=== PATIENT | female | born 1935 | race Caucasian/White ===

== ENCOUNTER → 2019-08-06 | Outpatient (CLI) | payer MEDICARE, BC ==
--- NOTE | 2019-08-06 13:50 | US ---
EXAMINATION TYPE: US pelvic complete DATE OF EXAM: 08/06/2019 COMPARISON: NONE CLINICAL HISTORY: 83-year-old female R93.899 abnormal findings on diagnostic imaging. Intermittent ri ght pelvic/hip pain x 1 year, 2, para 2 TECHNIQUE: Transabdominal sonographic images of the pelvis were acquired. Transvaginal sonographic i mages were medically necessary to better assess the following anatomy: endometrium and ovaries Date of LMP: 30 years ago FINDINGS: EXAM MEASUREMENTS: Uterus: 5.5 x 2.2 x 3.5 cm Endometrial Stripe: 0.2 cm Right Ovary: not seen Left Ovary: 2.7 x 1.1 x 1.5 cm 1. Uterus: anteverted 2. Endometrium: Fluid measuring 4 mm distending the uterine cavity. Suggestion of some debris or oth er hypoechoic material within the fluid as well more towards the lower uterine segment. 3. Right Ovary: not seen due to overlying bowel 4. Left Ovary: only seen transabdominally, 1.1cm hypoechoic area 5. Bilateral Adnexa: wnl 6. Posterior cul-de-sac: wnl IMPRESSION: 1. Fluid distending the uterine cavity up to 4 mm thick. There is also some hypoechoic material versu s debris toward the uterine cavity of the lower uterine segment. Recommend SCALE INSTALLER evaluation to exclu de cervical stenosis or a mucosal lesion along the lower uterine segment endometrium. 2. Nonspecific 1.1 cm hypoechoic lesion of the left ovary. A cyst is possible. 2-3 month follow-up re commended to reassess.
--- NOTE | 2019-08-06 14:46 | CT ---
EXAMINATION TYPE: CT abdomen pelvis wo con DATE OF EXAM: 08/06/2019 COMPARISON: HISTORY: left flank pain, low back pain and hesitancy of micturition CT DLP: 492 mGycm Automated exposure control for dose reduction was used. TECHNIQUE: Helical acquisition of images from the lung bases through the pelvis. FINDINGS: Lack of intravenous contrast could compromise sensitivity. LUNG BASES: No significant abnormality is appreciated. Posterior diaphragmatic hernias are present. T here is hiatal hernia present. AORTA: Atheromatous changes are appreciated. LIVER/GB: No significant abnormality is appreciated. PANCREAS: No significant abnormality is seen. SPLEEN: No significant abnormality is seen. ADRENALS: No significant abnormality is seen. KIDNEYS: There may be parapelvic cysts, extrarenal pelves bilaterally, punctate nonobstructive calcul us present at the lower pole of the right kidney, no evident ureteral calculus REPRODUCTIVE ORGANS: No significant abnormality is seen. URINARY BLADDER: Suspect a cystocele is present. BOWEL: No significant abnormality is seen. FREE AIR: No Free Air is visible. ASCITES: None visible. PELVIC ADENOPATHY: None visualized. RETROPERITONEAL ADENOPATHY: No Retroperitoneal Adenopathy visible. OSSEOUS STRUCTURES: Streak artifact due to patient's bilateral hip prostheses may limit evaluation w ithin the pelvis. There is a spinal curvature. Degenerative disc changes are present in the visualize d spine. There are associated facet arthropathy changes. IMPRESSION: URINARY BLADDER CYSTOCELE, NONCONTRAST EXAM. NONOBSTRUCTIVE RIGHT NEPHROLITHIASIS. ADDITIONAL LIMITAT IONS AND FINDINGS ABOVE.
== END | disposition home or self-care (01) ==
LOC: RADUSMAIN 12:37
PROVIDERS: ATTEND Family Medicine
DX: N83.8 Other noninflammatory disorders of ovary, fallopian tube and broad ligament (principal); N20.0 Calculus of kidney; N81.10 Cystocele, unspecified; K44.9 Diaphragmatic hernia without obstruction or gangrene; R39.11 Hesitancy of micturition
CPT/HCPCS: 74176; 76830; 76856

== ENCOUNTER 2020-09-28 12:17 | Emergency (ER) | payer MEDICARE, BC ==
[2020-09-28 13:23] VITALS: RESP 18
--- NOTE | 2020-09-28 14:07 | ED ---
General Adult HPI - General Chief complaint: Skin/Abscess/Foreign Body Stated complaint: rash Source: patient Mode of arrival: ambulatory Limitations: no limitations - History of Present Illness Initial comments: 84-year-old female presents emergency Department with a chief complaint of a rash. She states it has been relatively the same ever since it began approximately one week ago. Patient reports it is itchy but not painful. States it is localized to the bilateral lower extremities. States there is no discharge, from it. Denies any associated insects coming from region. Denies any fevers or chills. States she hasn't working out in the [email or web address] quite a bit and has poison IV and the surrounding area. She has been applying hydrogen peroxide with some improvement in the itching. Has not taken any oral medication. - Related Data Home Medications Medication Instructions Recorded Confirmed Calcium Carbonate [Calcium] 1 tab PO DAILY 03/13/15 03/25/15 Multivitamins, Thera [Multivitamin 1 tab PO DAILY 03/13/15 03/25/15 (formulary)] Previous Rx's Medication Instructions Recorded Docusate [Colace] 100 mg PO BID #60 capsule 03/26/15 Aspirin 325 mg PO BID #60 tab 03/28/15 Hydrocodone/Acetaminophen [[place] 1 - 2 each PO Q6HR PRN #90 tab 03/28/15 5-325] predniSONE [Deltasone] 20 mg PO DAILY #5 tab 09/28/20 Allergies Allergy/AdvReac Type Severity Reaction Status Date / Time No Known Allergies Allergy Verified 03/13/15 16:21 Review of Systems ROS Statement: Those systems with pertinent positive or pertinent negative responses have been documented in the HPI. ROS Other: All systems not noted in ROS Statement are negative. Past Medical History Past Medical History: Osteoarthritis (OA) Additional Past Medical History / Comment(s): HX KIDNEY STONE. History of Any Multi-Drug Resistant Organisms: None Reported Past Surgical History: Orthopedic Surgery Additional Past Surgical History / Comment(s): RT MASTOID SURG. RT SHOULDER SURG. Past Anesthesia/Blood Transfusion Reactions: No Reported Reaction Past Psychological History: No Psychological Hx Reported Smoking Status: Never smoker Past Alcohol Use History: Rare Past Drug Use History: None Reported - Past Family History Mother Family Medical History: No Reported History General Exam Limitations: no limitations General appearance: alert, in no apparent distress Head exam: Present: atraumatic, normocephalic, normal inspection Eye exam: Present: normal appearance Pupils: Present: normal accommodation ENT exam: Present: normal exam, normal oropharynx, mucous membranes moist Neck exam: Present: normal inspection, full ROM. Absent: tenderness, lymphadenopathy Respiratory exam: Present: normal lung sounds bilaterally. Absent: respiratory distress Cardiovascular Exam: Present: regular rate, normal rhythm, normal heart sounds. Absent: systolic murmur Extremities exam: Present: full ROM, normal capillary refill. Absent: normal inspection (Maculopapular rash to the bilateral lower extremities. No signs of cellulitis.) Back exam: Present: normal inspection, full ROM. Absent: tenderness Neurological exam: Present: alert, oriented X3 Psychiatric exam: Present: normal affect, normal mood Skin exam: Present: warm, dry, intact, normal color, rash Course Vital Signs 09/28/20 13:14 Temperature 97.8 F Pulse Rate 67 Respiratory 18 Rate Blood Pressure 181/94 O2 Sat by Pulse 98 Oximetry Medical Decision Making - Medical Decision Making 84-year-old female presents to emergency Department with a chief complaint of a rash. On physical examination, maculopapular rash in bilateral lower extremities. Itching is not worse at night. Does not appear to be contact dermatitis. It has rather equal distributional along bilateral lower extremities. I suspect more of a viral exanthem at this time. I will treat the patient with a short course of steroids and advised to take Benadryl for the itching. Also advised cool baths. Advised to follow with PCP. Case discussed with Dr. Mcfadden. Disposition Clinical Impression: Maculopapular rash Disposition: HOME SELF-CARE Condition: Stable Instructions (If sedation given, give patient instructions): Viral Exanthem (ED) Additional Instructions: Take prescribed medication as directed. Take Benadryl for itching. Follow with primary care physician. Return to emergency department if symptoms worsen. Prescriptions: predniSONE [Deltasone] 20 mg PO DAILY #5 tab Is patient prescribed a controlled substance at d/c from ED?: No Referrals: Nate Winston III, MD [Primary Care Provider] - 1-2 days Time of Disposition: 14:06
[2020-09-28 14:30] VITALS: BP 159/78; PULSE 82; TEMP 97.9
== END 2020-09-28 14:30 | disposition home or self-care (01) ==
LOC: EC 12:17
DX: R21 Rash and other nonspecific skin eruption (principal); M19.90 Unspecified osteoarthritis, unspecified site; Z79.82 Long term (current) use of aspirin; Z87.442 Personal history of urinary calculi
CPT/HCPCS: 99282

== ENCOUNTER 2021-05-25 15:07 | Inpatient (IN) | payer MEDICARE, BC ==
[2021-05-25 15:42] LABS: Basophils % (A) 0 %; Eosinophils # (A) 0.1 k/uL (0-0.7); Eosinophils % (A) 1 %; HCT 48.9 % (34.0-46.0); HGB 15.7 gm/dL (11.4-16.0); Lymphocytes # (A) 0.8 k/uL (1.0-4.8); Lymphocytes % (A) 4 %; MCH 31.4 pg (25.0-35.0); MCHC 32.2 g/dL (31.0-37.0); MCV 97.5 fL (80.0-100.0); Mean Platelet Volume 7.5; Monocytes # (A) 0.4 k/uL (0-1.0); Monocytes % (A) 2 %; Neutrophils # (A) 16.1 k/uL (1.3-7.7); Neutrophils % (A) 92 %; Platelet Count 234 k/uL (150-450); RBC 5.01 m/uL (3.80-5.40); RDW 12.7 % (11.5-15.5); WBC 17.4 k/uL (3.8-10.6)
[2021-05-25 15:56] LABS: Albumin 4.5 g/dL (3.5-5.0); Calcium 9.4 mg/dL (8.4-10.2); Potassium 4.1 mmol/L (3.5-5.1); Total Bilirubin 1.1 mg/dL (0.2-1.3); Total Protein 7.7 g/dL (6.3-8.2)
[2021-05-25] MEDS ORDERED: SODIUM CHLORIDE 0.9% 500 ML 500 ML IV STA (18:35)
--- NOTE | 2021-05-25 18:41 | ED ---
General Adult HPI - General Chief complaint: Abdominal Pain Stated complaint: Abd pain/back pain Time Seen by Provider: 05/25/21 18:27 Source: patient, RN notes reviewed, old records reviewed Mode of arrival: ambulatory Limitations: no limitations - History of Present Illness Initial comments: Well-appearing pleasant 85-year-old female presents with complaints of mid abdominal pain for one day. Patient states that she also has nausea and did vomit one time, did have one soft stool today but denies diarrhea. She denies fevers. Does complain of decreased appetite since yesterday. No chest pain or difficulty breathing. She states that she has not had any previous abdominal surgeries. She is a nonsmoker, no alcohol use. -: days(s) (1) Location: abdomen Radiation: non-radiation Severity scale (1-10): 7 Quality: aching Consistency: intermittent Improves with: none Worsens with: other (vomiting) Associated Symptoms: loss of appetite, nausea/vomiting Treatments Prior to Arrival: none - Related Data Home Medications Medication Instructions Recorded Confirmed Naproxen Sodium [Aleve] 220 mg PO BID PRN 05/25/21 05/25/21 Allergies Allergy/AdvReac Type Severity Reaction Status Date / Time No Known Allergies Allergy Verified 05/25/21 21:05 Review of Systems ROS Statement: Those systems with pertinent positive or pertinent negative responses have been documented in the HPI. ROS Other: All systems not noted in ROS Statement are negative. Past Medical History Past Medical History: Osteoarthritis (OA) Additional Past Medical History / Comment(s): HX KIDNEY STONE. History of Any Multi-Drug Resistant Organisms: None Reported Past Surgical History: Orthopedic Surgery Additional Past Surgical History / Comment(s): RT MASTOID SURG. RT SHOULDER SURG. Past Anesthesia/Blood Transfusion Reactions: No Reported Reaction Past Psychological History: No Psychological Hx Reported Smoking Status: Never smoker Past Alcohol Use History: Rare Past Drug Use History: None Reported - Past Family History Mother Family Medical History: No Reported History General Exam Limitations: no limitations General appearance: alert, in no apparent distress Head exam: Present: atraumatic Eye exam: Present: normal appearance. Absent: scleral icterus, conjunctival injection ENT exam: Present: normal exam, normal oropharynx, mucous membranes moist Neck exam: Absent: tenderness, meningismus Respiratory exam: Present: normal lung sounds bilaterally. Absent: respiratory distress, accessory muscle use Cardiovascular Exam: Present: tachycardia GI/Abdominal exam: Present: soft, tenderness (Mid periumbilical), normal bowel sounds. Absent: distended, guarding, rebound, rigid Extremities exam: Present: normal capillary refill. Absent: pedal edema Back exam: Present: normal inspection. Absent: tenderness, CVA tenderness (R), CVA tenderness (L), rash noted Neurological exam: Present: alert, oriented X3 Psychiatric exam: Present: normal affect, normal mood Skin exam: Present: warm, dry, other. Absent: normal color, rash, cyanosis, diaphoretic, pallor Course Vital Signs 05/25/21 05/25/21 15:23 21:26 Temperature 98.6 F Pulse Rate 113 H 86 Respiratory 20 16 Rate Blood Pressure 160/95 139/74 O2 Sat by Pulse 98 95 Oximetry - Reevaluation(s) Reevaluation #1: 05/25/21 18:41 Patient was offered pain medication and declined at this time. She was advised if she needs anything for pain or nausea returns to advise us. Time: 18:41 EKG Findings - EKG Results: EKG: sinus rhythm (Ventricular rate 86, IL interval .180, QRS 0.84 QTc .411) Medical Decision Making - Medical Decision Making 85-year-old female presents with 1 day of mid abdominal pain with nausea and one episode of vomiting. Patient states pain was 7 on a 10 initially refusing pain medication. She eventually did take a small dose of morphine with pain relief. CT shows ductal dilatation, common bile duct and main pancreatic duct. Papillary lesion is not entirely excluded. There is evidence of a small hiatal hernia. Diverticulosis with no evidence of diverticulitis. Patient has WBC count of 17 with a left shift. Amylase 1756, lipase 10,746. She was started on Zosyn will be admitted with consult to GI for possible ERCP. Vital signs are stable. She has been afebrile. Patient is agreeable to this plan of care. Case was discussed with Dr. Bailey. - Lab Data Result diagrams: 05/25/21 15:31 05/25/21 19:03 Lab Results 05/25/21 05/25/21 05/25/21 Range/Units 15:31 15:31 18:36 WBC 17.4 H (3.8-10.6) k/uL RBC 5.01 (3.80-5.40) m/uL Hgb 15.7 (11.4-16.0) gm/dL Hct 48.9 H (34.0-46.0) % MCV 97.5 (80.0-100.0) fL MCH 31.4 (25.0-35.0) pg MCHC 32.2 (31.0-37.0) g/dL RDW 12.7 (11.5-15.5) % Plt Count 234 (150-450) k/uL MPV 7.5 Neutrophils % 92 % Lymphocytes % 4 % Monocytes % 2 % Eosinophils % 1 % Basophils % 0 % Neutrophils # 16.1 H (1.3-7.7) k/uL Lymphocytes # 0.8 L (1.0-4.8) k/uL Monocytes # 0.4 (0-1.0) k/uL Eosinophils # 0.1 (0-0.7) k/uL Basophils # 0.0 (0-0.2) k/uL PT (9.0-12.0) sec INR (<1.2) APTT (22.0-30.0) sec Sodium 137 (137-145) mmol/L Potassium 4.1 (3.5-5.1) mmol/L Chloride 103 (98-107) mmol/L Carbon Dioxide 26 (22-30) mmol/L Anion Gap 8 mmol/L BUN 33 H (7-17) mg/dL Creatinine 0.80 (0.52-1.04) mg/dL Est GFR (CKD-EPI)AfAm 79 (>60 ml/min/1.73 sqM) Est GFR (CKD-EPI)NonAf 69 (>60 ml/min/1.73 sqM) Glucose 138 H (74-99) mg/dL Plasma Lactic Acid Freddy (0.7-2.0) mmol/L Calcium 9.4 (8.4-10.2) mg/dL Total Bilirubin 1.1 (0.2-1.3) mg/dL AST 43 H (14-36) U/L ALT 31 (4-34) U/L Alkaline Phosphatase 84 (38-126) U/L Troponin I (0.000-0.034) ng/mL Total Protein 7.7 (6.3-8.2) g/dL Albumin 4.5 (3.5-5.0) g/dL Amylase (30-110) U/L Lipase (23-300) U/L Urine Color Urine Appearance (Clear) Urine pH (5.0-8.0) Ur Specific Morgan (1.001-1.035) Urine Protein (Negative) Urine Glucose (UA) (Negative) Urine Ketones (Negative) Urine Blood (Negative) Urine Nitrite (Negative) Urine Bilirubin (Negative) Urine Urobilinogen (<2.0) mg/dL Ur Leukocyte Esterase (Negative) Influenza Type A (PCR) Not Detected (Not Detectd) Influenza Type B (PCR) Not Detected (Not Detectd) RSV (PCR) Not Detected (Not Detectd) SARS-CoV-2 (PCR) Not Detected (Not Detectd) 05/25/21 05/25/21 05/25/21 Range/Units 19:03 19:03 19:03 WBC (3.8-10.6) k/uL RBC (3.80-5.40) m/uL Hgb (11.4-16.0) gm/dL Hct (34.0-46.0) % MCV (80.0-100.0) fL MCH (25.0-35.0) pg MCHC (31.0-37.0) g/dL RDW (11.5-15.5) % Plt Count (150-450) k/uL MPV Neutrophils % % Lymphocytes % % Monocytes % % Eosinophils % % Basophils % % Neutrophils # (1.3-7.7) k/uL Lymphocytes # (1.0-4.8) k/uL Monocytes # (0-1.0) k/uL Eosinophils # (0-0.7) k/uL Basophils # (0-0.2) k/uL PT 10.5 (9.0-12.0) sec INR 1.0 (<1.2) APTT 23.4 (22.0-30.0) sec Sodium 137 (137-145) mmol/L Potassium 3.9 (3.5-5.1) mmol/L Chloride 103 (98-107) mmol/L Carbon Dioxide 23 (22-30) mmol/L Anion Gap 11 mmol/L BUN 30 H (7-17) mg/dL Creatinine 0.78 (0.52-1.04) mg/dL Est GFR (CKD-EPI)AfAm 82 (>60 ml/min/1.73 sqM) Est GFR (CKD-EPI)NonAf 71 (>60 ml/min/1.73 sqM) Glucose 118 H (74-99) mg/dL Plasma Lactic Acid Freddy 1.5 (0.7-2.0) mmol/L Calcium 9.3 (8.4-10.2) mg/dL Total Bilirubin 1.1 (0.2-1.3) mg/dL AST 38 H (14-36) U/L ALT 28 (4-34) U/L Alkaline Phosphatase 81 (38-126) U/L Troponin I (0.000-0.034) ng/mL Total Protein 7.4 (6.3-8.2) g/dL Albumin 4.2 (3.5-5.0) g/dL Amylase 1756 H* (30-110) U/L Lipase 84967 H (23-300) U/L Urine Color Urine Appearance (Clear) Urine pH (5.0-8.0) Ur Specific Morgan (1.001-1.035) Urine Protein (Negative) Urine Glucose (UA) (Negative) Urine Ketones (Negative) Urine Blood (Negative) Urine Nitrite (Negative) Urine Bilirubin (Negative) Urine Urobilinogen (<2.0) mg/dL Ur Leukocyte Esterase (Negative) Influenza Type A (PCR) (Not Detectd) Influenza Type B (PCR) (Not Detectd) RSV (PCR) (Not Detectd) SARS-CoV-2 (PCR) (Not Detectd) 05/25/21 05/25/21 Range/Units 19:03 19:40 WBC (3.8-10.6) k/uL RBC (3.80-5.40) m/uL Hgb (11.4-16.0) gm/dL Hct (34.0-46.0) % MCV (80.0-100.0) fL MCH (25.0-35.0) pg MCHC (31.0-37.0) g/dL RDW (11.5-15.5) % Plt Count (150-450) k/uL MPV Neutrophils % % Lymphocytes % % Monocytes % % Eosinophils % % Basophils % % Neutrophils # (1.3-7.7) k/uL Lymphocytes # (1.0-4.8) k/uL Monocytes # (0-1.0) k/uL Eosinophils # (0-0.7) k/uL Basophils # (0-0.2) k/uL PT (9.0-12.0) sec INR (<1.2) APTT (22.0-30.0) sec Sodium (137-145) mmol/L Potassium (3.5-5.1) mmol/L Chloride (98-107) mmol/L Carbon Dioxide (22-30) mmol/L Anion Gap mmol/L BUN (7-17) mg/dL Creatinine (0.52-1.04) mg/dL Est GFR (CKD-EPI)AfAm (>60 ml/min/1.73 sqM) Est GFR (CKD-EPI)NonAf (>60 ml/min/1.73 sqM) Glucose (74-99) mg/dL Plasma Lactic Acid Freddy (0.7-2.0) mmol/L Calcium (8.4-10.2) mg/dL Total Bilirubin (0.2-1.3) mg/dL AST (14-36) U/L ALT (4-34) U/L Alkaline Phosphatase (38-126) U/L Troponin I <0.012 (0.000-0.034) ng/mL Total Protein (6.3-8.2) g/dL Albumin (3.5-5.0) g/dL Amylase (30-110) U/L Lipase (23-300) U/L Urine Color Yellow Urine Appearance Clear (Clear) Urine pH 6.5 (5.0-8.0) Ur Specific Morgan 1.023 (1.001-1.035) Urine Protein Negative (Negative) Urine Glucose (UA) Negative (Negative) Urine Ketones Negative (Negative) Urine Blood Negative (Negative) Urine Nitrite Negative (Negative) Urine Bilirubin Negative (Negative) Urine Urobilinogen <2.0 (<2.0) mg/dL Ur Leukocyte Esterase Negative (Negative) Influenza Type A (PCR) (Not Detectd) Influenza Type B (PCR) (Not Detectd) RSV (PCR) (Not Detectd) SARS-CoV-2 (PCR) (Not Detectd) Disposition Clinical Impression: Pancreatitis Disposition: ADMITTED IP TO THIS HOSP Decision Date: 05/25/21 Decision Time: 21:09
[2021-05-25 19:36] LABS: Albumin 4.2 g/dL (3.5-5.0); Calcium 9.3 mg/dL (8.4-10.2); Potassium 3.9 mmol/L (3.5-5.1); Total Bilirubin 1.1 mg/dL (0.2-1.3); Total Protein 7.4 g/dL (6.3-8.2)
[2021-05-25 19:40] LABS: Partial Thromboplastin Time 23.4 sec (22.0-30.0); Prothrombin Time 10.5 sec (9.0-12.0)
[2021-05-25 20:04] LABS: Appearance,Urine Clear (Clear); Bilirubin,Urine Negative (Negative); Blood,Urine Negative (Negative); Color,Urine Yellow; Glucose,Urine (UA) Negative (Negative); Ketones,Urine Negative (Negative); Leukocyte Esterase,Urine Negative (Negative); Nitrite,Urine Negative (Negative); PH, Urine 6.5 (5.0-8.0); Protein,Urine Negative (Negative); Specific Gravity,Urine 1.023 (1.001-1.035); Urobilinogen,Urine <2.0 mg/dL (<2.0)
--- NOTE | 2021-05-25 20:26 | CT ---
EXAMINATION TYPE: CT abdomen pelvis w con CT DLP: 688.2 mGycm, Automated exposure control for dose reduction was used. DATE OF EXAM: 05/25/2021 7:25 PM COMPARISON: CT abdomen pelvis most recent from 08/05/2020. CLINICAL INDICATION:Female, 85 years old with history of abdominal pain; epigastric pain TECHNIQUE: Standard CT of the abdomen and pelvis following the administration of 100 cc of Isovue 3 00 IV contrast material. Coronal and sagittal reformats were performed. FINDINGS: LOWER CHEST: Unremarkable ABDOMEN LIVER: Probable cyst in left hepatic lobe. GALLBLADDER AND BILE DUCTS: There is dilation of the main pancreatic duct measuring up to 6 mm which has increased from prior, previously measuring approximately 3 mm. PANCREAS: Main pancreatic ductal dilation up to 4 mm. SPLEEN: Unremarkable. ADRENAL GLANDS: Unremarkable. KIDNEYS AND URETERS: No evidence of hydronephrosis or renal calculus. The ureters are unremarkable. Extrarenal pelves bilaterally. PELVIS Limited evaluation of the pelvis secondary to streak artifact. BLADDER: Unremarkable REPRODUCTIVE: Unremarkable. ABDOMEN & PELVIS STOMACH AND BOWEL: Small hiatal hernia, duodenum is unremarkable. Scattered diverticula are noted thr oughout the colon. No evidence of bowel obstruction. There is a large amount of stool seen throughout the colon. PERITONEUM: No evidence of pneumoperitoneum. Trace amount of free fluid within the pelvis. VASCULATURE: No evidence of aortic aneurysm. Atherosclerosis of the arterial vasculature. MUSCULOSKELETAL: No acute osseous abnormalities. Bilateral hip prostheses with streak artifact limits evaluation the pelvis. The level disc degeneration changes throughout the spine with grade 1 anterol isthesis of L3 on L4. There is disc uncovering. No evidence of his intra-articular defect. This also grade 1 anterior of these small foreign L5. No evidence of pars interarticularis defects at this leve l. LYMPH NODES: No gross evidence for lymphadenopathy. SOFT TISSUE/ABDOMINAL WALL: Unremarkable IMPRESSION: 1. Ductal dilatation of the common bile duct and main pancreatic duct which has increased from 2020. Papillary lesion is not entirely excluded. Consider dedicated MRCP/ERCP for further evaluation of th e ductal system. 2. Small hiatal hernia. 3. Colonic diverticulosis. 4. Large stool burden throughout the colon. 5. Nonspecific trace free fluid in the pelvis. 6. Grade 1 anterolisthesis of L3 on L4 and L4 on L5 without pars interarticularis defects.
[2021-05-25] MEDS ORDERED: PIPERACILLIN-TAZOBACTAM 3.375 GM in SODIUM CHLORIDE 0.9% 100 ML IVPB STA (20:45)
[2021-05-25] MEDS ORDERED: MORPHINE SULFATE 2 MG/ML SYRINGE IVP ONE (20:52)
[2021-05-25] MEDS ORDERED: HYDROmorphone 0.5 MG/0.5 ML SYRINGE IVP PRN (21:09)
[2021-05-25] MEDS ORDERED: ONDANSETRON 4 MG/2 ML VIAL IVP PRN (21:09)
[2021-05-25] MEDS ORDERED: NALOXONE 0.4 MG/ML 1 ML VIAL IV PRN (21:09)
[2021-05-25] MEDS ORDERED: SODIUM CHLORIDE 0.9% 1,000 ML IV SCH (21:15)
[2021-05-25] MEDS ORDERED: ACETAMINOPHEN TAB 325 MG TAB PO PRN (23:55)
--- NOTE | 2021-05-26 00:12 | P.HPIM ---
History of Present Illness H&P Date: 05/25/21 Chief Complaint: Abdominal pain 85-year-old Female with no significant past medical history Patient comes in complaining of epigastric abdominal pain that started this morning initially pain was in the back and she started feeling in the epigastric region radiating to bilateral lower quadrants. Described pain as colicky in nature and sometimes sharp 8 out of 10 in severity comes and goes. Not related to food. She reports one episode of loose stool, no GI bleeding, he was feeling nauseous and had one episode of vomiting nonbilious nonbloody. Denies any chest pain or trouble breathing denies any fevers or chills denies any recent travel or unsanitary food or drink. Patient denies tobacco smoking denies any recreational drugs denies any alcohol. In the ED workup suggested possible pancreatitis, this was confirmed with CT of the abdomen showing dilated common bile duct. She denies any history of gallstones. She denies any history of pancreatitis. Patient was given 1 dose of antibiotic in the ED Zosyn Review of Systems Pertinent positives as noted in HPI. All other systems were reviewed and are negative Past Medical History Past Medical History: Osteoarthritis (OA) Additional Past Medical History / Comment(s): HX KIDNEY STONE. History of Any Multi-Drug Resistant Organisms: None Reported Past Surgical History: Orthopedic Surgery Additional Past Surgical History / Comment(s): RT MASTOID SURG. RT SHOULDER SURG. Past Anesthesia/Blood Transfusion Reactions: No Reported Reaction Past Psychological History: No Psychological Hx Reported Smoking Status: Never smoker Past Alcohol Use History: Rare Past Drug Use History: None Reported - Past Family History Mother Family Medical History: No Reported History Medications and Allergies Home Medications Medication Instructions Recorded Confirmed Type Naproxen Sodium [Aleve] 220 mg PO BID PRN 05/25/21 05/25/21 History Allergies Allergy/AdvReac Type Severity Reaction Status Date / Time No Known Allergies Allergy Verified 05/25/21 21:05 Physical Exam Vitals: Vital Signs Temp Pulse Resp BP Pulse Ox 05/25/21 21:26 86 16 139/74 95 05/25/21 15:23 98.6 F 113 H 20 160/95 98 Intake and Output 05/25/21 05/25/21 05/26/21 14:59 22:59 06:59 Other: Weight 56.699 kg Constitutional: No acute distress, conversant, pleasant Eyes: Anicteric sclerae, moist conjunctiva, Pupils equal round reactive to light ENMT: NC/AT Oropharynx clear, no erythema, or exudates Neck: Supple, no masses, or JVD No carotid bruits No thyromegaly Lungs: Clear to auscultation Clear to percussion Normal respiratory effort, no accessory muscle use Cardiovascular: Heart regular in rate and rhythm, No murmurs, gallops, or rubs No peripheral edema Abdominal: Soft Epigastric tenderness to deep palpation, no guarding, rebound or rigidity Abdomen moving with respiration Normoactive bowel sounds No hepatomegaly, No splenomegaly No palpable mass No abdominal wall hernia noted Skin: Normal temperature, tone, texture, turgor No induration No subcutaneous nodules No rash, lesions No ulcers Extremities: No digital cyanosis No clubbing Pedal pulses intact and symmetrical Radial pulses intact and symmetrical No calf tenderness Psychiatric: Alert and oriented to person, place and time Appropriate affect fair judgement Neuro Muscles Strength 4/5 in all 4 extremities Sensation to light touch grossly present throughout Cranial nerves II-XII grossly intact No focal sensory deficits Lymphatics: no palpable cervical or supraclavicular , or inguinal lymph nodes Results CBC & Chem 7: 05/25/21 15:31 05/25/21 19:03 Labs: Abnormal Lab Results - Last 24 Hours (Table) 05/25/21 05/25/21 05/25/21 Range/Units 15:31 15:31 19:03 WBC 17.4 H (3.8-10.6) k/uL Hct 48.9 H (34.0-46.0) % Neutrophils # 16.1 H (1.3-7.7) k/uL Lymphocytes # 0.8 L (1.0-4.8) k/uL BUN 33 H 30 H (7-17) mg/dL Glucose 138 H 118 H (74-99) mg/dL AST 43 H 38 H (14-36) U/L Amylase 1756 H* (30-110) U/L Lipase 84769 H (23-300) U/L Assessment and Plan Assessment: Acute pancreatitis Possible gallstones GI consultation Aggressive IV fluid hydration with maintenance with lactated Ringer Nothing by mouth Pain control with opiates Monitor renal function and CBC Check triglyceride level CT of the abdomen reviewed Status post 1 dose of Zosyn, will continue to monitor off antibiotics Leukocytosis most A reactive, no fever DVT prophylaxis heparin subcu 3 times a day anticipated length of stay > 2 midnights Gi PPX PPI
[2021-05-26] MEDS: LACTATED RINGERS 1,000 ML IV SCH ×4 (02:08→23:57)
[2021-05-26] MEDS ORDERED: PIPERACILLIN-TAZOBACTAM 3.375 GM in SODIUM CHLORIDE 0.9% 100 ML IVPB SCH (05:00)
[2021-05-26] MEDS: PANTOPRAZOLE 40 MG/10 ML VIAL IV SCH (08:15)
[2021-05-26 09:13] LABS: Basophils # (A) 0.02 X 10*3/uL (0.00-0.10); Basophils % (A) 0.2 %; Eosinophils # (A) 0.01 X 10*3/uL (0.04-0.35); Eosinophils % (A) 0.1 %; HCT 41.1 % (37.2-46.3); HGB 13.4 g/dL (12.0-15.0); Immature Grans, Automated 0.2 %; Lymphocytes # (A) 1.62 X 10*3/uL (0.90-5.00); Lymphocytes % (A) 18.7 %; MCH 31.5 pg (27.0-32.0); MCHC 32.6 g/dL (32.0-37.0); MCV 96.7 fL (80.0-97.0); Mean Platelet Volume 10.6 fL (9.5-12.2); Monocytes # (A) 0.61 X 10*3/uL (0.20-1.00); NRBC Per 100 WBC 0 /100 WBCS (0.0-0.0); Neutrophils # (A) 6.38 X 10*3/uL (1.80-7.70); Neutrophils % (A) 73.8 %; Platelet Count 199 X 10*3/uL (140-440); RBC 4.25 X 10*6/uL (4.10-5.20); RDW 13.2 % (11.5-14.5); WBC 8.66 X 10*3/uL (4.50-10.00)
[2021-05-26 09:21] LABS: Albumin 3.8 g/dL (3.8-4.9); Anion Gap 8.4 mmol/L (10.00-18.00); BUN/Creat Ratio 27.13 Ratio (12.00-20.00); Blood Urea Nitrogen 21.7 mg/dL (9.0-27.0); Carbon Dioxide 24.6 mmol/L (20.0-27.5); Globulin 1.9 g/dL (1.6-3.3); Non-African American GFR(CKD) 68.2 (60.0-200.0); Potassium 3.8 mmol/L (3.5-5.5); Total Bilirubin 0.8 mg/dL (0.30-1.20); Total Protein 5.7 g/dL (6.2-8.2)
--- NOTE | 2021-05-26 14:03 | US ---
EXAMINATION TYPE: US gallbladder DATE OF EXAM: 05/26/2021 COMPARISON: NONE CLINICAL HISTORY: pancreatitis, abdominal pain. EXAM MEASUREMENTS: Liver Length: 12.3 cm Gallbladder Wall: 0.6 cm CBD: 0.7 cm Right Kidney: 9.4 x 3.7 x 4.3cm Pancreas: wnl Liver: wnl Gallbladder: thickened edematous wall, possible dependant stones, possible pericholecystic fluid Evidence for sonographic Denton's sign: no CBD: dilated Right Kidney: wnl IMPRESSION: 1. Findings are suggestive cholelithiasis correlate for acute cholecystitis. 2. Distal CBD dilated or at the upper limits of normal for the patient's age. Correlate for distal CB D stone or obstruction.
[2021-05-26 14:53] LABS: Lipase 1279 U/L (14-63)
--- NOTE | 2021-05-26 15:20 | P.CONS ---
History of Present Illness - Reason for Consult Consult date: 05/26/21 Pancreatitis Requesting physician: Fanta Carvajal - Chief Complaint Abdominal pain - History of Present Illness This is a pleasant 85-year-old female who presented to the emergency department yesterday with complaints of epigastric abdominal pain. She states that initia lly started in her back and then had wrapped around to her front to the epigastric region. She had some nausea but no vomiting. Patient states that the pain had been sharp in severity and was waxing and waning. She was noted to have elevated amylase and lipase. Amylase 1756 lipase 10,000 746 with normal LFTs. She denies any previous history of pancreatitis, no history of alcohol abuse, no new medications, no history of gallbladder disease or cholecystectomy. She denies any recent antibiotics. She does use NSAIDs as needed for osteoarthritis. She had a CT of the abdomen and pelvis that showed ductal dilation of the common bile duct and main pancreatic duct which has increased from 2020. Papillary lesion not entirely excluded. Consider dedicated MRCP/ERCP for further evaluation of the ductal system. Small hiatal hernia, colonic diverticulosis, large stool burden throughout the colon, nonspecific trace free fluid in pelvis. A she states abdominal pain has improved significantly. She still has some mild tenderness but nothing compared to yesterday. States she had a normal bowel movement yesterday but when she thinks about it she does get some constipation at times and will not go for 2-3 days duration. She is denying any nausea or vomiting, fevers or chills. WBC 8.6 hemoglobin 13.4 platelet count 199,001.0 total bilirubin 0.8 AST 25 ALT 21 alkaline phosphatase 69 lipase 1279 triglycerides 52.6 Review of Systems REVIEW OF SYSTEMS: CARDIOPULMONARY: No chest pain or shortness of breath. Gastrointestinal: Right upper quadrant and epigastric pain. No nausea or vomiting. No hematemesis, coffee-ground emesis. No rectal bleeding, or melena. GENITOURINARY: No dysuria or hematuria. MUSCULOSKELETAL: Reports normal range of motion., Joint pain. SKIN: No rashes. No jaundice. ENDOCRINE: No chills, fevers. No excessive weight gain or loss. No polydipsia or polyuria. PSYCHIATRIC: Unremarkable. NEUROLOGY: No change in mental status. Denies dizziness, headache. ENT: Vision unremarkable. CONSTITUTIONAL: No recent weight loss. No fever, chills, night sweats. Past Medical History Past Medical History: Osteoarthritis (OA) Additional Past Medical History / Comment(s): HX KIDNEY STONE. History of Any Multi-Drug Resistant Organisms: None Reported Past Surgical History: Orthopedic Surgery Additional Past Surgical History / Comment(s): RT MASTOID SURG. RT SHOULDER SURG. Past Anesthesia/Blood Transfusion Reactions: No Reported Reaction Past Psychological History: No Psychological Hx Reported Smoking Status: Never smoker Past Alcohol Use History: Rare Past Drug Use History: None Reported - Past Family History Mother Family Medical History: No Reported History Medications and Allergies Home Medications Medication Instructions Recorded Confirmed Type Naproxen Sodium [Aleve] 220 mg PO BID PRN 05/25/21 05/25/21 History Allergies Allergy/AdvReac Type Severity Reaction Status Date / Time No Known Allergies Allergy Verified 05/25/21 21:05 Physical Exam Vitals: Vital Signs Temp Pulse Pulse Resp BP BP Pulse Ox 05/26/21 07:00 97.6 F 61 16 147/93 96 05/26/21 02:24 98.2 F 68 18 148/75 96 05/25/21 21:26 86 16 139/74 95 05/25/21 15:23 98.6 F 113 H 20 160/95 98 Intake and Output 05/25/21 05/26/21 05/26/21 22:59 06:59 14:59 Other: Voiding Method Toilet # Voids 1 Weight 56.699 kg General appearance: The patient is alert, oriented, appears in no acute distress. HET: Head is normocephalic and atraumatic. Conjunctiva pink. Sclera anicteric. Neck: Supple without lymphadenopathy. Trachea midline. Heart: S1 S2. Regular rate and rhythm. Lungs: Clear to auscultation. Abdomen: Soft, epigastric tenderness, nondistended with bowel sounds. No guarding or rigidity. Skin: No rashes. No jaundice. Extremities: Normal skin color and turgor. No pedal edema. Neurological: No focal deficits. Alert and oriented x3. Results CBC & Chem 7: 05/26/21 05:51 05/26/21 05:51 Labs: Abnormal Lab Results - Last 24 Hours (Table) 05/25/21 05/25/21 05/25/21 Range/Units 15:31 15:31 19:03 WBC 17.4 H (3.8-10.6) k/uL Hct 48.9 H (34.0-46.0) % Neutrophils # 16.1 H (1.3-7.7) k/uL Lymphocytes # 0.8 L (1.0-4.8) k/uL BUN 33 H 30 H (7-17) mg/dL Glucose 138 H 118 H (74-99) mg/dL AST 43 H 38 H (14-36) U/L Amylase 1756 H* (30-110) U/L Lipase 78306 H (23-300) U/L Comments: CT of the abdomen and pelvis that showed ductal dilation of the common bile duct and main pancreatic duct which has increased from 2020. Papillary lesion not entirely excluded. Consider dedicated MRCP/ERCP for further evaluation of the ductal system. Small hiatal hernia, colonic diverticulosis, large stool burden throughout the colon, nonspecific trace free fluid in pelvis. Assessment and Plan (1) Pancreatitis Narrative/Plan: 85-year-old female who presented to the emergency department with complaints of epigastric pain which originally started in her back and radiated to the front right upper quadrant epigastric region. She's had nausea without vomiting and states pain was 8 out of 10 that was waxing and waning. She came to the emergency department further evaluation found to have elevated amylase and lipase. On admission she had elevated WBC 17.4 hemoglobin 15 LFTs were within normal limits with elevated amylase and lipase at 1756 10,000 746 respectively. Patient's symptoms have improved. She has no previous history of pancreatitis, no history of alcoholism, new medications, gallbladder issues or cholecystectomy. She denies any family history of pancreatitis or pancreatic cancer. CT of the abdomen and pelvis showed some CBD dilation and questionable papillary lesion. Will proceed with ordering an MRCP and abdominal ultrasound. Repeat amylase and lipase. Triglycerides were 52.6 Current Visit: Yes Status: Acute Code(s): K85.90 - ACUTE PANCREATITIS WITHOUT NECROSIS OR INFECTION, UNSP SNOMED Code(s): 85740360 (2) Abdominal pain Current Visit: Yes Status: Acute Code(s): R10.9 - UNSPECIFIED ABDOMINAL PAIN SNOMED Code(s): 21366491 Plan: 1. Continue symptomatic and supportive care 2. Continue pain management 3. Keep nothing by mouth, May have ice chips 4. MRCP ordered 5. Gallbladder ultrasound ordered 6. Repeat lipase 7. Continue IV hydration 8. Protonix 40 mg daily Thank you for this consultation, we will continue to follow. Dr. Tee Santana I agree with the dictator's note, documented as a scribe by Marlene Padron.
[2021-05-26 15:57] LABS: Amylase 921 U/L (23-121)
--- NOTE | 2021-05-26 17:30 | P.PN ---
Subjective Progress Note Date: 05/26/21 Hospital course: Patient is a very pleasant 85-year-old female with a past medical history of osteoarthritis. She presented to the emergency department with the chief complaint of epigastric abdominal pain accompanied by nausea without episodes of vomiting. She underwent full evaluation in the emergency department. Patient was found to have a critically elevated amylase of 1756 and lipase of 10,746. Urinalysis negative for infection. CT abdomen and pelvis with contrast revealed ductal dilation of the common bile duct and main pancreatic duct increased from 2020, papillary lesion is not entirely excluded, small hiatal hernia, colonic diverticulosis, stool burden throughout the colon, and nonspecific trace free fluid in the pelvis. Patient was admitted under our services with consultation to gastroenterology. Physical exam: Vital signs reviewed and stable. General: Nontoxic, no distress and appears stated age. Derm: Skin warm and dry, normal coloration for ethnicity. Head: Atraumatic, normocephalic and symmetric. Eyes: EOMs intact, no lid lag, and anicteric sclera Mouth: no lip lesions, mucus membranes moist Cardiovascular: regular rate and rhythm with normal S1S2, no murmur, positive posterior tibial pulses bilaterally, and cap refill < 2 seconds. Lungs: Respirations even, regular, and unlabored on room air. Lungs CTA bilaterally, no rhonchi, no rales, no wheezing, and no accessory muscle usage. Abdominal: soft, mild tenderness upon palpation to mid epigastric region upon palpation, no guarding, no appreciable organomegaly Ext: ROM intact. No gross muscle atrophy, no edema, no contractures Neuro: Speech clear, face symmetrical and CN II-XII grossly intact with no noted focal neuro deficits Psych: Alert and oriented to person, place, time, and situation. Appropriate and pleasant affect. Assessment and Plan of Care: Acute pancreatitis with CT findings of dilated pancreatic duct and common bile duct NPO with the exception of ice chips. Continue generous hydration with IV fluids Symptomatic care and pain management. General surgery following, appreciate further recommendations. GI prophylactics with Protonix 40 mg IVP daily. Constipation Dulcolax 5 mg daily CODE STATUS: Full code DVT prophylaxis: Lovenox Discussed with: Patient and RN Anticipated discharge date: Clinical course to determine Anticipated discharge place: Home A total of 36 minutes was spent on the care of this complex patient more than 50% of the time was spent in counseling and care coordination. Objective - Vital Signs Vital signs: Vital Signs Temp 97.6 F 05/26/21 07:00 Pulse 61 05/26/21 07:00 Resp 16 05/26/21 07:00 BP 147/93 05/26/21 07:00 Pulse Ox 96 05/26/21 07:00 Intake & Output 05/25/21 05/26/21 05/26/21 18:59 06:59 18:59 Weight 56.699 kg 56.699 kg Other: Voiding Method Toilet # Voids 1 - Labs CBC & Chem 7: 05/26/21 05:51 05/26/21 05:51 Labs: Abnormal Lab Results - Last 24 Hours (Table) 05/25/21 05/25/21 05/25/21 Range/Units 15:31 15:31 19:03 WBC 17.4 H (3.8-10.6) k/uL Hct 48.9 H (34.0-46.0) % Neutrophils # 16.1 H (1.3-7.7) k/uL Lymphocytes # 0.8 L (1.0-4.8) k/uL BUN 33 H 30 H (7-17) mg/dL Glucose 138 H 118 H (74-99) mg/dL AST 43 H 38 H (14-36) U/L Amylase 1756 H* (30-110) U/L Lipase 31118 H (23-300) U/L
[2021-05-27] MEDS: LACTATED RINGERS 1,000 ML IV SCH ×2 (07:42→17:17)
[2021-05-27] MEDS: PANTOPRAZOLE 40 MG/10 ML VIAL IV SCH (07:43)
[2021-05-27] MEDS: bisacodyL 5 MG TABLET.DR PO SCH (10:29)
[2021-05-27] MEDS: ENOXAPARIN 40 MG/0.4 ML SYRINGE SQ SCH (10:29)
--- NOTE | 2021-05-27 10:48 | MR ---
MRCP HISTORY: Pancreatitis, abnormal CT Multiplanar multisequence images of the abdomen and post processed three-dimensional reconstructions performed through the biliary system and alternate workstation and reviewed Comparison to prior CT scan 05/25/2021, ultrasound gallbladder 05/26/2021 The common bile duct is at the upper limit of normal for size is age group. There is suspected focus of low signal in the region of the cystic duct, axial image 29 series 701, coronal image 67 of series 901 suggesting possible gallstone, there is pericholecystic fluid present. The thickened gallbladder wall is better appreciated on patient's ultrasound. Pancreatic duct is dilated. No evident liver les ion. Minimal ascites suspected about the liver and spleen. There are parapelvic cysts with extrarenal pelves present within the kidneys. No evident adrenal mass . Spleen is within normal limits. No bowel obstruction. Lung bases show minimal fluid. No retroperito maribell adenopathy. Aorta shows normal caliber. No evident pancreatic mass. Degenerative disc changes, s karin curvature, facet arthropathy noted incidentally within the spine. Susceptibility artifact due t o patient's hip prostheses is present. IMPRESSION: Correlate for cholecystitis, suspect cholelithiasis, HIDA scan may be of benefit. There i s borderline ductal measurements as described. Minimal pleural effusions, ascites and additional find ings above.
[2021-05-27 11:43] LABS: ALT 21 U/L (4-34); AST 36 U/L (14-36); African American GFR (CKD) 87 (>60 ml/min/1.73 sqM); Albumin/Globulin Ratio 1.3; Alkaline Phosphatase 105 U/L (38-126); Anion Gap 11 mmol/L; Blood Urea Nitrogen 18 mg/dL (7-17); Calcium 9.2 mg/dL (8.4-10.2); Carbon Dioxide 23 mmol/L (22-30); Chloride 106 mmol/L (98-107); Globulin 3.1 g/dL; Glucose 62 mg/dL (74-99); Lipase 1316 U/L (23-300); Non-African American GFR(CKD) 76 (>60 ml/min/1.73 sqM); Potassium 4.2 mmol/L (3.5-5.1); Sodium 140 mmol/L (137-145); Total Bilirubin 1.5 mg/dL (0.2-1.3); Total Protein 7.1 g/dL (6.3-8.2)
--- NOTE | 2021-05-27 11:52 | P.GSCN ---
History of Present Illness Consult date: 05/27/21 History of present illness: CHIEF COMPLAINT: Abdominal pain HISTORY OF PRESENT ILLNESS: This is a 85-year-old female presented with abdominal pain that started at 5 AM Tuesday morning. She reports that the pain started in the right side of her back radiated up into the right upper quadrant and across into the epigastric area. Pain woke her up around 5 AM and lasted all day. She is nauseated had decreased appetite also is experiencing some abdominal bloating. She's never had symptoms like this before any prior history of gallstones. She reports that she had been having some issues with constipation and was able to have a small BM on Tuesday. She was reporting her pain about 7 out of 10 and therefore came into the hospital for further evaluation. Patient had computed tomography scan of abdomen and pelvis that did show ductal dilatation of the common bile duct and main pancreatic duct which has increased from 2020. Papular lesion is not entirely excluded. Patient seen by GI service they ordered an MRCP as well as patient had an abdominal ultrasound completed with findings suggestive of cholelithiasis correlate for acute cholecystitis. Distal CBD dilated or at the upper limits of normal for patient's age. Patient reports that she has had a decrease in her abdominal pain since admission which her pain about a 2 out of 10. Her lipase on admiss ion was elevated at 10,000 and she did have a mildly elevated AST. Patient denies any history of alcohol use. Denies any prior history of pancreatitis. Denies any cardiac history. She denies any prior abdominal surgery. PAST MEDICAL HISTORY: See list. PAST SURGICAL HISTORY: See list. MEDICATIONS: See list. ALLERGIES: See list. SOCIAL HISTORY: No illicit drug use. REVIEW OF SYSTEMS: CONSTITUTIONAL: Denies fever or chills. HEENT: Denies blurred vision, vision changes, or eye pain. Denies hemoptysis CARDIOVASCULAR: Denies chest pain or pressure. RESPIRATORY: No shortness of breath. GASTROINTESTINAL: See HPI for pertinent findings HEMATOLOGIC: Denies bleeding disorders. GENITOURINARY: Denies any blood in urine or increased urinary frequency. SKIN: Denies pruitis. Denies rash. PHYSICAL EXAM: VITAL SIGNS: Reviewed GENERAL: Well-developed in no acute distress. HEENT: No sclera icterus. Extraocular movements grossly intact. Moist buccal mucosa. Head is atraumatic, normocephalic. No nasal drainage. ABDOMEN: Soft. Nondistended. Tenderness with palpation of the right upper quadrant and epigastric area NEUROLOGIC: Alert and oriented. Cranial nerves II through XII grossly intact. LABORATORY DATA: WBC 17.4 down to 8.66 hemoglobin 13.4 platelets 199 Sodium 140 potassium 4.2 creatinine 0.74 lactic acid 1.5 AST 43 down to 36 ALT 21 total bilirubin is up at 1.5 alk phos 105 Lipase 10,746 down to 1279 and then today was 1316 Amylase 1756-921 IMAGING: Computed tomography scan abdomen and pelvis ductal dilatation of the common bile duct and main pancreatic duct which has increased from 2020. Papular lesion is not entirely excluded. Considered dedicated MRCP/ERCP for further evaluation. Small hiatal hernia. Colonic diverticulosis. Large stool burden throughout the colon. Nonspecific trace free fluid in the pelvis. Grade 1 anterolisthesis of L3 on L4 and L4-L5 Gallbladder ultrasound findings suggestive cholelithiasis correlate for acute cholecystitis. Distal CBD dilated at or at upper limits of normal at patient's age. Correlate for distal CBD stone or obstruction ASSESSMENT: 1. Gallstone pancreatitis 2. Abdominal pain PLAN: -Patient scheduled for MRCP today. We'll follow up on MRCP results -Patient being followed by GI service -Further recommendations forthcoming per surgeon -Continue supportive care -Continue IV fluids -Continue to monitor lipase -Continue clear liquid diet Thank you for this consultation Physician Chief Operator Hydroformer note has been reviewed by physician. Signing provider agrees with the documented findings, assessment, and plan of care. I have personally seen and examined the patient, reviewed the SHIFT NURSE MANAGER /PAs history, exam and MDM and agree with the assessment and plan as written. Based on total visit time, I have performed more than 50% of the visit. As above: CAT scan ultrasound and MRI results reviewed. Patient with probable biliary source for pancreatitis. Discussed options in detail with patient. Lashawn farooq is relatively comfortable with mild epigastric tenderness currently. We'll tentatively schedule for laparoscopic, possible open cholecystectomy tomorrow. Risks of bleeding, infection, bile leak, bile duct injury, retained common bile duct stone, alternate etiology for pancreatitis, trocar injury, conversion to an open procedure, hernia, anesthesia related complications were reviewed. The pa tient understands and wishes to proceed. Past Medical History Past Medical History: Osteoarthritis (OA) Additional Past Medical History / Comment(s): HX KIDNEY STONE. History of Any Multi-Drug Resistant Organisms: None Reported Past Surgical History: Orthopedic Surgery Additional Past Surgical History / Comment(s): RT MASTOID SURG. RT SHOULDER SURG. Past Anesthesia/Blood Transfusion Reactions: No Reported Reaction Past Psychological History: No Psychological Hx Reported Smoking Status: Never smoker Past Alcohol Use History: Rare Past Drug Use History: None Reported - Past Family History Mother Family Medical History: No Reported History Medications and Allergies Home Medications Medication Instructions Recorded Confirmed Type Naproxen Sodium [Aleve] 220 mg PO BID PRN 05/25/21 05/25/21 History Allergies Allergy/AdvReac Type Severity Reaction Status Date / Time No Known Allergies Allergy Verified 05/25/21 21:05 Surgical - Exam Vital Signs Temp Pulse Resp BP Pulse Ox 98.6 F 113 H 20 160/95 98 05/25/21 15:23 05/25/21 15:23 05/25/21 15:23 05/25/21 15:23 05/25/21 15:23 Results - Labs 05/26/21 05:51 05/27/21 11:10 Abnormal Lab Results - Last 24 Hours (Table) 05/26/21 Range/Units 05:51 Amylase 921 H* (23-121) U/L Lipase 1279 H (14-63) U/L
--- NOTE | 2021-05-27 12:03 | P.PN ---
Subjective Progress Note Date: 05/27/21 Principal diagnosis: Pancreatitis Patient seen today as a follow-up for abdominal pain and acute pancreatitis. Yesterday she underwent gallbladder ultrasound with findings suggestive of cholelithiasis acute for acute cholecystitis. Distal CBD dilated at upper limits of normal for patient's age. Correlate for this distal CBD stone or obstruction. MRCP findings of report correlate for cholecystitis, suspect cholelithiasis. Borderline ductal measurement. Mild pleural effusions, ascites additional findings as above. Patient states abdominal pain has improved. She denies any nausea or vomiting. She is stating that she is hungry. Repeat labs total bilirubin 1.5 AST 36 ALT 21 alkaline phosphatase 105 lipase 1316. Objective - Vital Signs Vital signs: Vital Signs Temp 97.6 F 05/27/21 06:50 Pulse 73 05/27/21 06:50 Resp 18 05/27/21 06:50 BP 169/81 05/27/21 06:50 Pulse Ox 97 05/27/21 06:50 Intake & Output 05/26/21 05/27/21 05/27/21 18:59 06:59 18:59 Intake Total 120 Balance 120 Intake: Oral 120 Other: Voiding Method Toilet # Voids 1 1 1 - Exam General appearance: The patient is alert, oriented, appears in no acute distress. HET: Head is normocephalic and atraumatic. Conjunctiva pink. Sclera anicteric. Neck: Supple without lymphadenopathy. Abdomen: Soft, epigastric tenderness, nondistended with bowel sounds. No guarding or rigidity. Extremities: Normal skin color and turgor. No pedal edema Skin: No rashes, no jaundice Neurological: No focal deficits. Alert and oriented -3. - Labs CBC & Chem 7: 05/26/21 05:51 05/27/21 11:10 Labs: Abnormal Lab Results - Last 24 Hours (Table) 05/26/21 05/27/21 Range/Units 05:51 11:10 BUN 18 H (7-17) mg/dL Glucose 62 L (74-99) mg/dL Total Bilirubin 1.5 H (0.2-1.3) mg/dL Amylase 921 H* (23-121) U/L Lipase 1279 H 1316 H (14-63) U/L Assessment and Plan (1) Pancreatitis Narrative/Plan: 85-year-old female who presented to the emergency department with complaints of epigastric pain which originally started in her back and radiated to the front right upper quadrant epigastric region. She's had nausea without vomiting and states pain was 8 out of 10 that was waxing and waning. She came to the emergency department further evaluation found to have elevated amylase and lipase. On admission she had elevated WBC 17.4 hemoglobin 15 LFTs were within normal limits with elevated amylase and lipase at 1756 10,000 746 respectively. Patient's symptoms have improved. She has no previous history of pancreatitis, no history of alcoholism, new medications, gallbladder issues or cholec ystectomy. She denies any family history of pancreatitis or pancreatic cancer. CT of the abdomen and pelvis showed some CBD dilation and questionable papillary lesion. Will proceed with ordering an MRCP and abdominal ultrasound. Repeat amylase and lipase. Triglycerides were 52.6 Gallbladder ultrasound and MRCP consistent with gallstone pancreatitis. No evidence of choledocholithiasis. Gen. surgery consulted Current Visit: Yes Status: Acute Code(s): K85.90 - ACUTE PANCREATITIS WITHOUT NECROSIS OR INFECTION, UNSP SNOMED Code(s): 69584782 (2) Abdominal pain Current Visit: Yes Status: Acute Code(s): R10.9 - UNSPECIFIED ABDOMINAL PAIN SNOMED Code(s): 44925373 Plan: 1. Continue symptomatic and supportive care 2. Continue pain management 3. Patient may have clear liquid diet 4. MRCP ordered and reviewed 5. Gallbladder ultrasound ordered and reviewed 6. Continue IV hydration 7. Protonix 40 mg daily 8. Consult to Gen. surgery for cholelithiasis 9. No plans on ERCP Thank you for this consultation, we will continue to follow. Dr. Tee Santana I agree with the dictator's note, documented as a scribe by Marlene Padron.
--- NOTE | 2021-05-27 19:41 | P.PN ---
Subjective Progress Note Date: 05/27/21 Hospital course: Patient is a very pleasant 85-year-old female with a past medical history of osteoarthritis. She presented to the emergency department with the chief complaint of epigastric abdominal pain accompanied by nausea without episodes of vomiting. She underwent full evaluation in the emergency department. Patient was found to have a critically elevated amylase of 1756 and lipase of 10,746. Urinalysis negative for infection. CT abdomen and pelvis with contrast revealed ductal dilation of the common bile duct and main pancreatic duct increased from 2020, papillary lesion is not entirely excluded, small hiatal hernia, colonic diverticulosis, stool burden throughout the colon, and nonspecific trace free fluid in the pelvis. Patient was admitted under our services with consultation to gastroenterology. Physical exam: patient seen and fully evaluated at bedside this morning. Patient appears to be doing very well this morning. she reports significant improvement in previously reported abdominal/epigastric pain and denies any further episodes of nausea or vomiting. patient underwent MRCP this morning revealing cholecystitis suspected cholestasis, HIDA scan may benefit with reports of borderline ductal measurements. patient's diet increased to clear liquids at this time with plans to place patient nothing by mouth at midnight for likely cholecystectomy secondary to gallstone pancreatitis. Vital signs reviewed and stable. General: Nontoxic, no distress and appears stated age. Derm: Skin warm and dry, normal coloration for ethnicity. Head: Atraumatic, normocephalic and symmetric. Eyes: EOMs intact, no lid lag, and anicteric sclera Mouth: no lip lesions, mucus membranes moist Cardiovascular: regular rate and rhythm with normal S1S2, no murmur, positive posterior tibial pulses bilaterally, and cap refill < 2 seconds. Lungs: Respirations even, regular, and unlabored on room air. Lungs CTA bilaterally, no rhonchi, no rales, no wheezing, and no accessory muscle usage. Abdominal: soft, mild tenderness upon palpation to mid epigastric region upon palpation, no guarding, no appreciable organomegaly Ext: ROM intact. No gross muscle atrophy, no edema, no contractures Neuro: Speech clear, face symmetrical and CN II-XII grossly intact with no noted focal neuro deficits Psych: Alert and oriented to person, place, time, and situation. Appropriate and pleasant affect. Assessment and Plan of Care: Acute pancreatitis with CT findings of dilated pancreatic duct and common bile duct Clear liquid diet, NPO at midnight General surgery following plans for laparoscopic cholecystectomy tomorrow Continue generous hydration with IV fluids Symptomatic care and pain management. GI prophylactics with Protonix 40 mg IVP daily. GI following, appreciate further recommendations. Constipation Dulcolax 5 mg daily patient reports no bowel movement as of this time but does report passing flatus today. CODE STATUS: Full code DVT prophylaxis: Lovenox Discussed with: Patient and RN Anticipated discharge date: Clinical course to determine Anticipated discharge place: Home A total of 38 minutes was spent on the care of this complex patient more than 50% of the time was spent in counseling and care coordination. Objective - Vital Signs Vital signs: Vital Signs Temp 97.6 F 05/27/21 06:50 Pulse 73 05/27/21 06:50 Resp 18 05/27/21 06:50 BP 169/81 05/27/21 06:50 Pulse Ox 97 05/27/21 06:50 Intake & Output 05/26/21 05/27/21 05/27/21 18:59 06:59 18:59 Intake Total 120 Balance 120 Intake: Oral 120 Other: Voiding Method Toilet # Voids 1 1 1 - Labs CBC & Chem 7: 05/26/21 05:51 05/27/21 11:10 Labs: Abnormal Lab Results - Last 24 Hours (Table) 05/26/21 Range/Units 05:51 Amylase 921 H* (23-121) U/L Lipase 1279 H (14-63) U/L
[2021-05-28] MEDS: LACTATED RINGERS 1,000 ML IV SCH ×3 (02:49→16:25)
[2021-05-28] MEDS: PANTOPRAZOLE 40 MG/10 ML VIAL IV SCH (08:16)
[2021-05-28] MEDS: bisacodyL 5 MG TABLET.DR PO SCH ×3 (08:16→08:26)
[2021-05-28] MEDS: ENOXAPARIN 40 MG/0.4 ML SYRINGE SQ SCH (08:17)
[2021-05-28 09:49] LABS: African American GFR (CKD) 81.5 (60.0-200.0); Albumin 3.6 g/dL (3.8-4.9); Albumin/Globulin Ratio 1.71 (1.60-3.17); Anion Gap 11.3 mmol/L (10.00-18.00); BUN/Creat Ratio 15.64 Ratio (12.00-20.00); Blood Urea Nitrogen 12.2 mg/dL (9.0-27.0); Carbon Dioxide 23.6 mmol/L (20.0-27.5); Globulin 2.1 g/dL (1.6-3.3); Non-African American GFR(CKD) 70.3 (60.0-200.0); Potassium 3.6 mmol/L (3.5-5.5); Total Bilirubin 0.8 mg/dL (0.30-1.20); Total Protein 5.8 g/dL (6.2-8.2)
[2021-05-28] MEDS ORDERED: IV FLUID CONTINUATION 1,000 ML IV ONE (11:12)
[2021-05-28] MEDS ORDERED: DEXAMETHASONE SOD PHOSPHATE 4 MG/ML 1 ML VIAL IVP ONE (11:38)
[2021-05-28] MEDS ORDERED: ONDANSETRON 4 MG/2 ML VIAL IVP ONE (11:38)
[2021-05-28] MEDS ORDERED: LABETALOL 5 MG/ML VIAL MDV ONE (11:45)
[2021-05-28] MEDS ORDERED: SUCCINYLCHOLINE CHLORIDE 100 MG/5 ML SYR IV ONE (11:45)
[2021-05-28] MEDS ORDERED: NEOSTIGMINE 1 MG/ML 10 ML VIAL ONE (11:45)
[2021-05-28] MEDS ORDERED: fentaNYL (PF) 50 MCG/ML 2 ML AMP ONE (11:45)
[2021-05-28] MEDS ORDERED: GLYCOPYRROLATE 0.2 MG/ML 2 ML VIAL ONE (11:45)
[2021-05-28] MEDS ORDERED: WATER FOR INJECTION, STERILE 10 ML VIAL IV ONE (11:45)
[2021-05-28] MEDS ORDERED: PROPOFOL 10 MG/ML 20 ML VIAL IV ONE (11:45)
[2021-05-28] MEDS ORDERED: ROCURONIUM 10 MG/ML (5 ML VIAL) IV ONE (11:45)
[2021-05-28] MEDS ORDERED: ePHEDrine 50 MG/ML 1 ML VIAL ONE (11:45)
[2021-05-28] MEDS ORDERED: LIDOCAINE 2% INJ 20 MG/ML (2 ML VIAL) ONE (11:45)
[2021-05-28] MEDS ORDERED: SODIUM CHLORIDE 0.9% 100 ML with ceFAZolin 2 GM IV ONE ×2 (11:49)
[2021-05-28] MEDS ORDERED: LIDOCAINE 0.5%-EPI 1:200,000 50 ML VIAL SQ ONE (12:17)
[2021-05-28] MEDS ORDERED: LACTATED RINGERS 1,000 ML IV ONE (12:37)
[2021-05-28] MEDS ORDERED: HYDROcodone/APAP 5-325MG 1 EACH TAB PO PRN (12:54)
--- NOTE | 2021-05-28 12:56 | P.OP ---
Date of Procedure: 05/28/21 Procedure(s) Performed: PREOPERATIVE DIAGNOSIS: Gallstone pancreatitis POSTOPERATIVE DIAGNOSIS: Same PROCEDURE: Laparoscopic cholecystectomy SURGEON: Snow EBL: Minimal see anesthesia record ANESTHESIA: Gen. COMPLICATIONS: None OPERATIVE PROCEDURE: The patient was brought and placed on the operating room ta [facility] in the supine position. The patient was placed under general anesthesia at that time. The abdomen was prepped and draped in the usual sterile fashion. A small vertical infraumbilical incision was made. The fascia was grasped with the Sherif forceps. The fascia was retracted anteriorly. The Veress needle was advanced into the peritoneal cavity. The saline drop test was normal. Insufflation took place up to 15 mmHg. A 5 mm optical trocar was advanced and the peritoneal cavity. 2 additional 5 mm trochars were placed in the right upper quadrant under direct visualization. A 12 mm trocar was advanced into the epigastric incision site. The gallbladder was somewhat distended and had mild inflammatory changes noted. The gallbladder was retracted superiorly and laterally. The peritoneum overlying the infundibulum was bluntly dissected. The patient's cystic duct was visualized. The junction between the cystic duct common and hepatic duct was identified. The critical view of safety was achieved after blunt dissection. The cystic duct was then divided after placement of 3 12 mm clips on the patient's side and one on the specimen side. The cystic artery was identified and clipped as well. A small vessel was seen along the gallbladder fossa and clipped as well. The gallbladder was then removed from the liver bed using electrocautery. The gallbladder was then removed from the epigastric trocar site with an Endo Catch bag. The gallbladder fossa was irrigated with saline. There was no evidence of any bleeding or biliary drainage seen. The fascia at the 12 millimeter site was closed using a Vitor-Patrice 0 Vicryl stitch. The trochars were then removed. The skin at all 4 sites was closed using a 4-0 Monocryl stitch. Skin glue was utilized on the incision sites. At the end of this procedure the sponge and needle counts were correct. DISPOSITION: Stable to the recovery room
[2021-05-28] MEDS ORDERED: hydrALAZINE HCL 20 MG/ML 1 ML VIAL IVP ONE (13:17)
--- NOTE | 2021-05-28 17:23 | P.PN ---
Subjective Progress Note Date: 05/28/21 Hospital course: Patient is a very pleasant 85-year-old female with a past medical history of osteoarthritis. She presented to the emergency department with the chief complaint of epigastric abdominal pain accompanied by nausea without episodes of vomiting. She underwent full evaluation in the emergency department. Patient was found to have a critically elevated amylase of 1756 and lipase of 10,746. Urinalysis negative for infection. CT abdomen and pelvis with contrast revealed ductal dilation of the common bile duct and main pancreatic duct increased from 2020, papillary lesion is not entirely excluded, small hiatal hernia, colonic diverticulosis, stool burden throughout the colon, and nonspecific trace free fluid in the pelvis. Patient was admitted under our services with consultation to gastroenterology. Physical exam: Patient seen and fully evaluated at bedside upon return from laparoscopic cholecystectomy by Dr. Adamson. Patient appears to be doing well and is tolerating oral intake. She denies having any postoperative nausea or vomiting and reports total control postoperative pain. Patient reports that she had a bowel movement earlier. Patient states she still feels a little sleepy from surgery but otherwise denies having any complaints at this time. Vital signs stable. Vital signs reviewed and stable. General: Nontoxic, no distress and appears stated age. Derm: Skin warm and dry, normal coloration for ethnicity. Head: Atraumatic, normocephalic and symmetric. Eyes: EOMs intact, no lid lag, and anicteric sclera Mouth: no lip lesions, mucus membranes moist Cardiovascular: regular rate and rhythm with normal S1S2, no murmur, positive po sterior tibial pulses bilaterally, and cap refill < 2 seconds. Lungs: Respirations even, regular, and unlabored on room air. Lungs CTA bilaterally, no rhonchi, no rales, no wheezing, and no accessory muscle usage. Abdominal: soft, mild tenderness upon palpation to mid epigastric region upon palpation, no guarding, no appreciable organomegaly Ext: ROM intact. No gross muscle atrophy, no edema, no contractures Neuro: Speech clear, face symmetrical and CN II-XII grossly intact with no noted focal neuro deficits Psych: Alert and oriented to person, place, time, and situation. Appropriate and pleasant affect. Assessment and Plan of Care: Gallstone pancreatitis Status post laparoscopic cholecystectomy completed 05/28/21 Clear liquid diet and advance to low-fat diet as patient tolerates General surgery following plans for laparoscopic cholecystectomy tomorrow Patient received generous hydration with IV fluids, she is now tolerating oral intake of fluids well and has had no further episodes of nausea or vomiting. IV fluids discontinued. Symptomatic care and pain management. GI prophylactics with Protonix 40 mg IVP daily. GI following, appreciate further recommendations. Constipation, resolved Dulcolax 5 mg daily CODE STATUS: Full code DVT prophylaxis: Lovenox Discussed with: Patient and RN Anticipated discharge date: Tomorrow morning Anticipated discharge place: Home A total of 36 minutes was spent on the care of this complex patient more than 50% of the time was spent in counseling and care coordination. Objective - Vital Signs Vital signs: Vital Signs Temp 97.7 F 05/28/21 13:54 Pulse 81 05/28/21 15:22 Resp 14 05/28/21 13:54 BP 129/76 05/28/21 15:22 Pulse Ox 95 05/28/21 15:22 Intake & Output 05/27/21 05/28/21 05/28/21 18:59 06:59 18:59 Intake Total 960 1740 Output Total 10 Balance 960 1730 Intake: IV 1500 Oral 960 240 Output: Estimated Blood Loss 10 Other: Voiding Method Toilet # Voids 1 2 3 # Bowel Movements 1 - Labs CBC & Chem 7: 05/26/21 05:51 05/28/21 05:36 Labs: Abnormal Lab Results - Last 24 Hours (Table) 05/28/21 Range/Units 05:36 Total Protein 5.8 L (6.2-8.2) g/dL Albumin 3.6 L (3.8-4.9) g/dL Lipase 161 H (14-63) U/L
--- NOTE | 2021-05-28 17:38 | P.PN ---
Subjective Progress Note Date: 05/28/21 Principal diagnosis: Pancreatitis Patient seen today as a follow-up for abdominal pain and acute pancreatitis. she underwent gallbladder ultrasound with findings suggestive of cholelithiasis acute for acute cholecystitis. Distal CBD dilated at upper limits of normal for patient's age. Correlate for this distal CBD stone or obstruction. MRCP findings of report correlate for cholecystitis, suspect cholelithiasis. Borderline ductal measurement. Mild pleural effusions, ascites additional findings as above. Patient states abdominal pain has improved. She denies any nausea or vomiting. She is scheduled today for cholecystectomy with Dr. Adamson. Objective - Vital Signs Vital signs: Vital Signs Temp 97.5 F L 05/28/21 08:28 Pulse 96 05/28/21 08:28 Resp 16 05/28/21 08:28 BP 156/78 05/28/21 08:28 Pulse Ox 96 05/28/21 08:28 Intake & Output 05/27/21 05/28/21 05/28/21 18:59 06:59 18:59 Intake Total 960 Balance 960 Intake: Oral 960 Other: Voiding Method Toilet # Voids 1 2 1 # Bowel Movements 1 - Exam General appearance: The patient is alert, oriented, appears in no acute distress. HET: Head is normocephalic and atraumatic. Conjunctiva pink. Sclera anicteric. Neck: Supple without lymphadenopathy. Abdomen: Soft, epigastric tenderness, nondistended with bowel sounds. No guarding or rigidity. Extremities: Normal skin color and turgor. No pedal edema Skin: No rashes, no jaundice Neurological: No focal deficits. Alert and oriented -3. - Labs CBC & Chem 7: 05/26/21 05:51 05/28/21 05:36 Labs: Abnormal Lab Results - Last 24 Hours (Table) 05/27/21 Range/Units 11:10 BUN 18 H (7-17) mg/dL Glucose 62 L (74-99) mg/dL Total Bilirubin 1.5 H (0.2-1.3) mg/dL Lipase 1316 H (23-300) U/L Assessment and Plan (1) Pancreatitis Narrative/Plan: 85-year-old female who presented to the emergency department with complaints of epigastric pain which originally started in her back and radiated to the front right upper quadrant epigastric region. She's had nausea without vomiting and states pain was 8 out of 10 that was waxing and waning. She came to the emergency department further evaluation found to have elevated amylase and lipase. On admission she had elevated WBC 17.4 hemoglobin 15 LFTs were within normal limits with elevated amylase and lipase at 1756 10,000 746 respectively. Patient's symptoms have improved. She has no previous history of pancreatitis, no history of alcoholism, new medications, gallbladder issues or cholecys tectomy. She denies any family history of pancreatitis or pancreatic cancer. CT of the abdomen and pelvis showed some CBD dilation and questionable papillary lesion. Will proceed with ordering an MRCP and abdominal ultrasound. Repeat amylase and lipase. Triglycerides were 52.6 Gallbladder ultrasound and MRCP consistent with gallstone pancreatitis. No evidence of choledocholithiasis. Gen. surgery consulted Current Visit: Yes Status: Acute Code(s): K85.90 - ACUTE PANCREATITIS WITHOUT NECROSIS OR INFECTION, UNSP SNOMED Code(s): 52326835 (2) Abdominal pain Current Visit: Yes Status: Acute Code(s): R10.9 - UNSPECIFIED ABDOMINAL PAIN SNOMED Code(s): 96986108 (3) Cholelithiasis Narrative/Plan: Patient to undergo cholecystectomy today Current Visit: Yes Status: Acute Code(s): K80.20 - CALCULUS OF GALLBLADDER W/O CHOLECYSTITIS W/O OBSTRUCTION SNOMED Code(s): 810618067 Plan: 1. Continue symptomatic and supportive care 2. NPO 6. Continue IV hydration 7. Protonix 40 mg daily 8. Consult to Gen. surgery for cholelithiasis, patient scheduled for cholecystectomy today 9. No plans on ERCP 10. CMP Thank you for this consultation, we will continue to follow. Dr. Tee Santana I agree with the dictator's note, documented as a scribe by Marlene Padron.
[2021-05-29 03:03] VITALS: RESP 18
[2021-05-29 08:05] VITALS: TEMP 98.3
[2021-05-29 09:22] LABS: HCT 41.7 % (37.2-46.3); HGB 13.3 g/dL (12.0-15.0); MCH 31.4 pg (27.0-32.0); MCHC 31.9 g/dL (32.0-37.0); MCV 98.3 fL (80.0-97.0); Mean Platelet Volume 10.3 fL (9.5-12.2); NRBC Per 100 WBC 0 /100 WBCS (0.0-0.0); Platelet Count 228 X 10*3/uL (140-440); RBC 4.24 X 10*6/uL (4.10-5.20); RDW 12.6 % (11.5-14.5)
[2021-05-29 09:52] LABS: African American GFR (CKD) 60.3 (60.0-200.0); Albumin 4.1 g/dL (3.8-4.9); Albumin/Globulin Ratio 1.86 (1.60-3.17); Anion Gap 10.6 mmol/L (10.00-18.00); BUN/Creat Ratio 10.3 Ratio (12.00-20.00); Blood Urea Nitrogen 10.3 mg/dL (9.0-27.0); Calcium 9.3 mg/dL (8.7-10.3); Carbon Dioxide 24.4 mmol/L (20.0-27.5); Globulin 2.2 g/dL (1.6-3.3); Non-African American GFR(CKD) 52.1 (60.0-200.0); Potassium 3.9 mmol/L (3.5-5.5); Total Bilirubin 0.6 mg/dL (0.30-1.20); Total Protein 6.3 g/dL (6.2-8.2)
[2021-05-29] MEDS: ENOXAPARIN 40 MG/0.4 ML SYRINGE SQ SCH (10:06)
[2021-05-29] MEDS: PANTOPRAZOLE 40 MG/10 ML VIAL IV SCH (10:07)
--- NOTE | 2021-05-29 12:46 | P.PN ---
Subjective Progress Note Date: 05/29/21 CHIEF COMPLAINT: Gallstone pancreatitis HISTORY OF PRESENT ILLNESS: Patient is status post laparoscopic cholecystectomy. Postop day #1. Patient reports that she feels good. Patient denies any abdominal pain. She denies any nausea or vomiting. She did have clear liquids this morning which she tolerated and they advanced to a full liquids. She had oatmeal on top of her clear liquids and she is was feeling a little bloated. She has been up and ambulating. She denies any flatus. Afebrile. WBC is 7.7 hemoglobin is 13.3 platelets 228 sodium 137 potassium 3.9 creatinine 1.0 total bilirubin 0.6 AST 45 ALT 30 alk phos 83 PHYSICAL EXAM: VITAL SIGNS: Reviewed. GENERAL: Well-developed in no acute distress. HEENT: No sclera icterus. Extraocular movements grossly intact. Moist buccal mucosa. Head is atraumatic, normocephalic. ABDOMEN: Soft. Nondistended. Nontender. Minimal bruising noted at the lower abdominal incision otherwise clean dry and intact. NEUROLOGIC: Alert and oriented. Cranial nerves II through XII grossly intact. ASSESSMENT: 1. Gallstone pancreatitis status post laparoscopic cholecystectomy PLAN: -Encouraged patient to go slower with diet and eat only small amounts. Patient educated that if she continues to have bloating to not advance diet further. However, if she is feeling well this afternoon she can advance to the low-fat diet -Continue supportive care -Continue the Tylenol as needed for pain -Encouraged patient to ambulate Physician Plant Quality Manager note has been reviewed by physician. Signing provider agrees with the documented findings, assessment, and plan of care. I have personally seen and examined the patient, reviewed the [employer]ER /PAs history, exam and MDM and agree with the assessment and plan as written. Based on total visit time, I have performed more than 50% of the visit. As above: Patient doing well today. Minimal discomfort. Labs noted. May discharge from a surgical point of view. Follow-up one week. Objective - Vital Signs Vital signs: Vital Signs Temp 98.3 F 05/29/21 08:00 Pulse 68 05/29/21 08:00 Resp 18 05/29/21 08:00 BP 123/64 05/29/21 08:00 Pulse Ox 100 05/29/21 08:00 Intake & Output 05/28/21 05/29/21 05/29/21 18:59 06:59 18:59 Intake Total 1740 240 Output Total 10 400 250 Balance 1730 -400 -10 Intake: IV 1500 Oral 240 240 Output: Urine 400 250 Estimated Blood Loss 10 Other: Voiding Method Toilet # Voids 2 # Bowel Movements 1 - Labs CBC & Chem 7: 05/29/21 06:48 05/29/21 06:48 Labs: Abnormal Lab Results - Last 24 Hours (Table) 05/29/21 05/29/21 Range/Units 06:48 06:48 MCV 98.3 H (80.0-97.0) fL MCHC 31.9 L (32.0-37.0) g/dL Est GFR (CKD-EPI)NonAf 52.1 L (60.0-200.0) BUN/Creatinine Ratio 10.30 L (12.00-20.00) Ratio Glucose 118 H (70-110) mg/dL AST 45 H (13-35) U/L
--- NOTE | 2021-05-29 13:20 | P.PN ---
Subjective Progress Note Date: 05/29/21 Principal diagnosis: Pancreatitis Patient seen today as a follow-up for abdominal pain and acute gallstone pancreatitis. And is seen and examined. She is status post op day #1 for laparoscopic cholecystectomy with Dr. Adamson. She is up and ambulating, denies any nausea or vomiting. She is tolerating her diet. She is having some mild discomfort near her incision on the right upper abdomen. She denies passing any flatus. Total bilirubin 0.6 AST 45 ALT 30 alkaline phosphatase 83 she's been afebrile. Objective - Vital Signs Vital signs: Vital Signs Temp 98.3 F 05/29/21 08:00 Pulse 68 05/29/21 08:00 Resp 18 05/29/21 08:00 BP 123/64 05/29/21 08:00 Pulse Ox 100 05/29/21 08:00 Intake & Output 05/28/21 05/29/21 05/29/21 18:59 06:59 18:59 Intake Total 1740 240 Output Total 10 400 250 Balance 1730 -400 -10 Intake: IV 1500 Oral 240 240 Output: Urine 400 250 Estimated Blood Loss 10 Other: Voiding Method Toilet # Voids 2 # Bowel Movements 1 - Exam General appearance: The patient is alert, oriented, appears in no acute distress. HET: Head is normocephalic and atraumatic. Conjunctiva pink. Sclera anicteric. Neck: Supple without lymphadenopathy. Abdomen: Soft, mild surgical tenderness on the right, incisions well approximated, decreased bowel sounds. No guarding or rigidity. Extremities: Normal skin color and turgor. No pedal edema Skin: No rashes, no jaundice Neurological: No focal deficits. Alert and oriented x 3. - Labs CBC & Chem 7: 05/29/21 06:48 05/29/21 06:48 Labs: Abnormal Lab Results - Last 24 Hours (Table) 05/29/21 05/29/21 Range/Units 06:48 06:48 MCV 98.3 H (80.0-97.0) fL MCHC 31.9 L (32.0-37.0) g/dL Est GFR (CKD-EPI)NonAf 52.1 L (60.0-200.0) BUN/Creatinine Ratio 10.30 L (12.00-20.00) Ratio Glucose 118 H (70-110) mg/dL AST 45 H (13-35) U/L Assessment and Plan (1) Pancreatitis Narrative/Plan: 85-year-old female who presented to the emergency department with complaints of epigastric pain which originally started in her back and radiated to the front right upper quadrant epigastric region. She's had nausea without vomiting and states pain was 8 out of 10 that was waxing and waning. She came to the emergency department further evaluation found to have elevated amylase and lipase. On admission she had elevated WBC 17.4 hemoglobin 15 LFTs were within normal limits with elevated amylase and lipase at 1756 10,000 746 respectively. Patient's symptoms have improved. She has no previous history of pancreatitis, no history of alcoholism, new medications, gallbladder issues or cholecystectomy. She denies any family history of pancreatitis or pancreatic cancer. CT of the abdomen and pelvis showed some CBD dilation and questionable papillary lesion. Will proceed with ordering an MRCP and abdominal ultrasound. Repeat amylase and lipase. Triglycerides were 52.6 Gallbladder ultrasound and MRCP consistent with gallstone pancreatitis. No evidence of choledocholithiasis. Gen. surgery consulted Current Visit: Yes Status: Acute Code(s): K85.90 - ACUTE PANCREATITIS WITHOUT NECROSIS OR INFECTION, UNSP SNOMED Code(s): 84028260 (2) Abdominal pain Current Visit: Yes Status: Acute Code(s): R10.9 - UNSPECIFIED ABDOMINAL PAIN SNOMED Code(s): 25095480 (3) Cholelithiasis Narrative/Plan: Patient to undergo cholecystectomy today Current Visit: Yes Status: Acute Code(s): K80.20 - CALCULUS OF GALLBLADDER W/O CHOLECYSTITIS W/O OBSTRUCTION SNOMED Code(s): 490117663 Plan: 1. Continue symptomatic and supportive care 2. Diet per surgical service recommendation 3. Patient is cleared for discharge by gastroenterology. Follow-up as needed 4. Continue with recommendations from surgical services Thank you for allowing us to participate in the care of the patient, the GI service will sign off, gastroenterology will not be available at the hospital this weekend and through next week. If further evaluation by gastroenterology is required the patient will need transfer as per the primary team's discretion. Dr. eTe Santana I agree with the dictator's note, documented as a scribe by Marlene Padron.
--- NOTE | 2021-05-29 14:47 | P.DS ---
Providers Date of admission: 05/26/21 08:35 Expected date of discharge: 05/29/21 Attending physician: Fanta Carvajal MD Consults: 05/25/21 21:09 Consult Physician Routine Consulting Provider: Lisa Santana Consult Reason/Comments: Pancreatitis Do you want consulting provider notified?: Already Contacted 05/27/21 07:36 Consult Physician Routine Consulting Provider: Gian Adamson Consult Reason/Comments: gallstone pancreatitis Do you want consulting provider notified?: Yes [facility]: 85-year-old female with a past medical history of osteoarthritis. She presented to the emergency department with the chief complaint of epigastric abdominal pain accompanied by nausea without episodes of vomiting. She underwent full evaluation in the emergency department. Patient was found to have a critically elevated amylase of 1756 and lipase of 10,746. Urinalysis negative for infection. CT abdomen and pelvis with contrast revealed ductal dilation of the common bile duct and main pancreatic duct, increased from 2020, papillary lesion is not entirely excluded, small hiatal hernia, colonic diverticulosis, stool burden throughout the colon, and nonspecific trace free fluid in the pelvis. Patient was admitted under our services with consultation to gastroenterology and surgery. Patient had a right upper quadrant ultrasound and an MRCP and both showed evidence of cholecystitis and cholelithiasis. There was also some common bile duct dilation as well. Lipase is improved with IV fluids. She was see by GI who did not think an ERCP was indicated. Patient was also seen by general surgery who did a lap cholecystectomy on 05/28. Patient tolerated the procedure well. Diet was advanced gradually. She tolerated diet. She is currently ambulating without difficulty. She was cleared by general surgery for discharge. She will be discharged home in stable condition. Time for discharge 35 minutes. Plan - Discharge Summary New Discharge Prescriptions: Continue Naproxen Sodium [Aleve] 220 mg PO BID PRN PRN Reason: Pain Discharge Medication List Naproxen Sodium [Aleve] 220 mg PO BID PRN 05/25/21 [History] Follow up Appointment(s)/Referral(s): Gian Adamson MD [Medical Doctor] - 1 Week Nate Winston III, MD [Primary Care Provider] - 1-2 days Activity/Diet/Wound Care/Special Instructions: No lifting over 10 pounds Shower daily. No soaking or tub baths for 2 weeks Very light activity until you are reevaluated at your follow up appointment with your surgeon
[2021-05-29 15:01] VITALS: BP 117/74; PULSE 64
== END 2021-05-29 16:30 | disposition home or self-care (01) | DRG 417 ==
LOC: EC 15:07 → 6NMEDSUR 22:21 → OBSVTOIN 05-26 08:35
PROVIDERS: ADMIT Internal Medicine; ATTEND Internal Medicine
PROC: 0FT44ZZ Resection of Gallbladder, Percutaneous Endoscopic Approach (ICD-10-PCS; principal; 2021-05-28 10:55)
DX: K80.00 Calculus of gallbladder with acute cholecystitis without obstruction (principal); K85.10 Biliary acute pancreatitis without necrosis or infection; R18.8 Other ascites; J90 Pleural effusion, not elsewhere classified; K44.9 Diaphragmatic hernia without obstruction or gangrene; K57.30 Diverticulosis of large intestine without perforation or abscess without bleeding; K59.00 Constipation, unspecified; M19.90 Unspecified osteoarthritis, unspecified site; Z20.822 Contact with and (suspected) exposure to COVID-19; Z28.310 Unvaccinated for COVID-19; Z98.890 Other specified postprocedural states; Z87.442 Personal history of urinary calculi
CPT/HCPCS: 36415; 74177; 74181; 76705; 80053; 81003; 82150; 83605; 83690; 84478; 84484; 85025; 85027; 85610; 85730; 87636; 88304; 93005; 96365; 96375; 99285

== ENCOUNTER 2021-06-09 15:26 | Emergency (ER) | payer BC, MEDICARE, OTHER ==
[2021-06-09 15:54] VITALS: TEMP 97.6
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
[2021-06-09 18:14] VITALS: BP 168/100; PULSE 83; RESP 16
== END 2021-06-09 18:02 | disposition home or self-care (01) ==
LOC: EC 15:26
DX: M79.641 Pain in right hand (principal); M79.642 Pain in left hand; V89.2XXA Person injured in unspecified motor-vehicle accident, traffic, initial encounter